=== PATIENT | female | born 1950 | race Caucasian/White ===

== ENCOUNTER 2016-09-08 17:19 | Emergency (ER) | payer MEDICARE, OTHER ==
[2016-09-08] MEDS ORDERED: MORPHINE 2 MG/ML SYRINGE IVP STA (19:22)
[2016-09-08] MEDS ORDERED: SODIUM CHLORIDE 0.9% 1,000 ML IV ONE ×2 (19:22→19:27)
[2016-09-08] MEDS ORDERED: MORPHINE 2 MG/ML SYRINGE ONE (19:27)
[2016-09-08] MEDS ORDERED: ONDANSETRON 4 MG/2 ML VIAL ONE (19:35)
[2016-09-08] MEDS ORDERED: ONDANSETRON 4 MG/2 ML VIAL IVP STA (19:36)
[2016-09-08] MEDS ORDERED: POTASSIUM BICARB 25 MEQ TABLET PO STA (20:12)
[2016-09-08] MEDS ORDERED: POTASSIUM BICARB 25 MEQ TABLET PO ONE (20:23)
[2016-09-08] MEDS ORDERED: CIPROFLOXACIN 250 MG TABLET PO STA (21:37)
[2016-09-08] MEDS ORDERED: metroNIDAZOLE 250 MG TABLET PO STA (21:37)
[2016-09-08] MEDS ORDERED: IOPAMIDOL-300 100 ML VIAL IVP ONE (21:42)
[2016-09-08] MEDS ORDERED: CIPROFLOXACIN 250 MG TABLET PO ONE (21:43)
[2016-09-08] MEDS ORDERED: metroNIDAZOLE 250 MG TABLET PO ONE (21:43)
== END 2016-09-08 22:00 | disposition home or self-care (01) ==
DX: A09 Infectious gastroenteritis and colitis, unspecified (principal); K92.1 Melena; K57.30 Diverticulosis of large intestine without perforation or abscess without bleeding; I10 Essential (primary) hypertension; E78.00 Pure hypercholesterolemia, unspecified; K21.9 Gastro-esophageal reflux disease without esophagitis; Z79.82 Long term (current) use of aspirin
CPT/HCPCS: 36415; 74177; 80053; 83690; 85025; 86850; 86900; 86901; 96374; 96375; 99283; 99284; A9270; Q9967

== ENCOUNTER 2016-11-08 09:24 | Outpatient (CLI) | payer MEDICARE, OTHER | END 2016-11-08 09:25 | disposition home or self-care (01) | DX: Z78.0 Asymptomatic menopausal state (principal) ==

== ENCOUNTER 2017-01-11 09:48 | Outpatient (CLI) | payer MEDICARE, OTHER | END 2017-01-11 09:49 | disposition home or self-care (01) | DX: I10 Essential (primary) hypertension (principal); Z79.899 Other long term (current) drug therapy ==

== ENCOUNTER 2017-02-28 09:02 | Outpatient (CLI) | payer MEDICARE, OTHER ==
[2017-02-28 09:26] LABS: CREATININE 0.8 mg/dL (0.4-1.0); POTASSIUM 3.4 mmol/L (3.5-5.0)
== END 2017-02-28 09:03 | disposition home or self-care (01) ==
LOC: LAB 09:02
PROVIDERS: ATTEND Physician Assistant Medical
DX: Z79.899 Other long term (current) drug therapy (principal)
CPT/HCPCS: 36415; 80048

== ENCOUNTER 2017-09-08 08:02 | Outpatient (CLI) | payer MEDICARE, OTHER ==
[2017-09-08 08:29] LABS: EOSINOPHILS # (AUTO) 0.1 10^3/uL (0.0-0.7); EOSINOPHILS % (AUTO) 3.4 %; HGB - HEMOGLOBIN 14.2 g/dL (12.0-16.0); LYMPHOCYTES # (AUTO) 1.7 10^3/uL (1.5-3.5); LYMPHOCYTES % (AUTO) 37.5 %; MEAN CORPUSCULAR HEMOGLOBIN 32.2 pg (27.0-31.0); MEAN CORPUSCULAR HGB CONC 34.8 g/dL (32.0-36.0); MEAN CORPUSCULAR VOLUME 92.7 fL (81.0-99.0); MEAN PLATELET VOLUME 10.1 fL (7.9-10.8); MONOCYTES # (AUTO) 0.4 10^3/uL (0.0-1.0); MONOCYTES % (AUTO) 8.8 %; NEUTROPHILS # (AUTO) 2.2 10^3/uL (1.5-6.6); NEUTROPHILS % (AUTO) 49.3 %; PLT - PLATELET COUNT 111 10^3/uL (130-450); RED BLOOD COUNT 4.39 10^6/uL (4.20-5.40); RED CELL DISTRIBUTION WIDTH 12.7 % (12.0-15.0); WHITE BLOOD COUNT 4.4 x10^3/uL (4.8-10.8)
[2017-09-08 08:36] LABS: HB2 TOTAL 15.2 g/dL; HEMOGLOBIN A1C 0.44 g/dL; HEMOGLOBIN A1C % 4.8 % (4.6-6.2)
[2017-09-08 09:08] LABS: ALBUMIN 4.4 g/dL (3.2-5.5); ALBUMIN/GLOBULIN RATIO 1.5 (1.0-2.2); ALKALINE PHOSPHATASE 41 IU/L (42-121); ALT ALANINE AMINOTRANSFERASE 24 IU/L (10-60); AST ASPARTATE AMINOTRANSFERASE 23 IU/L (10-42); BILIRUBIN,TOTAL 0.9 mg/dL (0.2-1.0); BUN - BLOOD UREA NITROGEN 18 mg/dL (6-20); CALCIUM 9.2 mg/dL (8.5-10.3); CARBON DIOXIDE - CO2 26 mmol/L (21-32); CHLORIDE 103 mmol/L (101-111); CHOL/HDL RATIO 2.8 (<4.4); CHOLESTEROL 147 mg/dL; CREATININE 0.8 mg/dL (0.4-1.0); GFR - MDRD 72 (>89); GLUCOSE 86 mg/dL (70-100); HDL CHOLESTEROL 52 mg/dL; LDL CHOLESTEROL,CALCULATED 56 mg/dL; LDL/HDL RATIO 1.1 (<4.4); SODIUM 138 mmol/L (135-145); TOTAL PROTEIN 7.3 g/dL (6.7-8.2); VLDL CHOLESTEROL 39 mg/dL
== END 2017-09-08 08:03 | disposition home or self-care (01) ==
LOC: LAB 08:02
PROVIDERS: ATTEND Nurse Practitioner Primary Care
DX: R73.01 Impaired fasting glucose (principal); Z79.899 Other long term (current) drug therapy; E88.81 Metabolic syndrome and other insulin resistance; I10 Essential (primary) hypertension; J30.2 Other seasonal allergic rhinitis; E78.2 Mixed hyperlipidemia
CPT/HCPCS: 36415; 80053; 80061; 83036; 84443; 85025

== ENCOUNTER 2017-09-10 08:57 | Outpatient (CLI) | payer MEDICARE, OTHER ==
--- NOTE | 2017-09-11 16:22 | MRI Report ---
EXAM: LEFT MIDFOOT MRI WITHOUT CONTRAST EXAM DATE: 09/10/2017 03:42 PM. CLINICAL HISTORY: Left forefoot pain for 6 months, worse near the second and third metatarsals. Prior surgery to the first and fourth toes. COMPARISON: None. TECHNIQUE: Multiplanar, multisequence T1-weighted and fluid-sensitive sequences of the midfoot withou t contrast. Other: None. FINDINGS: Bones: No fractures or subluxations. No marrow edema. No bone lesions. Articular Cartilage: Unremarkable. Ligaments: The visualized intertarsal, intermetatarsal, and tarsometatarsal ligaments are intact. Thi s includes the Lisfranc ligament. The visualized collateral ligaments are intact. Tendons: The flexor and extensor tendons are unremarkable. Musculature: No edema or fatty atrophy. Other: No effusions. The visualized portion of the tarsal tunnel is unremarkable. No intermetatarsal bursitis. The subcutaneous tissues are unremarkable. IMPRESSION: 1. Prior surgery to the first metatarsal. 2. Moderate osteoarthritis at the first metatarsophalangeal joint. [facility] Referring Provider Line: [phone] SITE ID: [id number]
== END 2017-09-10 08:58 | disposition home or self-care (01) ==
LOC: DI 08:57
PROVIDERS: ATTEND Podiatrist
DX: M19.072 Primary osteoarthritis, left ankle and foot (principal)

== ENCOUNTER 2018-01-01 13:00 | Outpatient (CLI) | payer MEDICARE, OTHER ==
[2018-01-01 11:24] LABS: BASOPHILS % (AUTO) 0.8 %; EOSINOPHILS # (AUTO) 0.2 10^3/uL (0.0-0.7); HGB - HEMOGLOBIN 13.7 g/dL (12.0-16.0); LYMPHOCYTES % (AUTO) 33.3 %; MEAN CORPUSCULAR HEMOGLOBIN 30.6 pg (27.0-31.0); MEAN CORPUSCULAR HGB CONC 33.9 g/dL (32.0-36.0); MEAN CORPUSCULAR VOLUME 90.2 fL (81.0-99.0); MEAN PLATELET VOLUME 10.7 fL (7.9-10.8); MONOCYTES # (AUTO) 0.4 10^3/uL (0.0-1.0); MONOCYTES % (AUTO) 6.7 %; NEUTROPHILS # (AUTO) 3.3 10^3/uL (1.5-6.6); NEUTROPHILS % (AUTO) 55.2 %; PLT - PLATELET COUNT 133 10^3/uL (130-450); RED BLOOD COUNT 4.46 10^6/uL (4.20-5.40); RED CELL DISTRIBUTION WIDTH 12.9 % (12.0-15.0)
[2018-01-01 11:34] LABS: ALBUMIN 4.1 g/dL (3.2-5.5); ALBUMIN/GLOBULIN RATIO 1.4 (1.0-2.2); BILIRUBIN,TOTAL 0.3 mg/dL (0.2-1.0); CALCIUM 8.8 mg/dL (8.5-10.3); CREATININE 0.8 mg/dL (0.4-1.0)
--- NOTE | 2018-01-01 13:20 | XRAY Preliminary Report ---
Exam: XR CHEST 2 VIEW X-RAY IMPRESSION: Normal 2-view chest radiography. [facility] SITE ID: [id number]
--- NOTE | 2018-01-01 13:20 | XRAY Report ---
EXAM: CHEST RADIOGRAPHY EXAM DATE: 01/01/2018 11:04 AM. CLINICAL HISTORY: FATIGUE / COUGH. COMPARISON: None. TECHNIQUE: 2 views. FINDINGS: Lungs/Pleura: No focal opacities evident. No pleural effusion. No pneumothorax. Normal volumes. Mediastinum: Heart and mediastinal contours are unremarkable. Other: None. IMPRESSION: Normal 2-view chest radiography. [facility] Referring Provider Line: [phone] SITE ID: [id number]
== END 2018-01-01 23:59 ==
LOC: DI 13:00
PROVIDERS: ATTEND Nurse Practitioner Primary Care
DX: R53.83 Other fatigue (principal); R05 Cough; E03.9 Hypothyroidism, unspecified
CPT/HCPCS: 36415; 71046; 80053; 84443; 85025

== ENCOUNTER 2018-09-14 08:09 | Outpatient (CLI) | payer MEDICARE, OTHER ==
[2018-09-14 08:45] LABS: BASOPHILS # (AUTO) 0.1 10^3/uL (0.0-0.1); BASOPHILS % (AUTO) 1.2 %; EOSINOPHILS # (AUTO) 0.2 10^3/uL (0.0-0.7); EOSINOPHILS % (AUTO) 4.1 %; HGB - HEMOGLOBIN 10.9 g/dL (12.0-16.0); LYMPHOCYTES % (AUTO) 39.4 %; MEAN CORPUSCULAR HEMOGLOBIN 24.7 pg (27.0-31.0); MEAN CORPUSCULAR HGB CONC 32.6 g/dL (32.0-36.0); MEAN CORPUSCULAR VOLUME 75.7 fL (81.0-99.0); MEAN PLATELET VOLUME 10.6 fL (7.9-10.8); MONOCYTES # (AUTO) 0.4 10^3/uL (0.0-1.0); MONOCYTES % (AUTO) 7.3 %; NEUTROPHILS # (AUTO) 2.4 10^3/uL (1.5-6.6); PLT - PLATELET COUNT 149 10^3/uL (130-450); RED BLOOD COUNT 4.43 10^6/uL (4.20-5.40); RED CELL DISTRIBUTION WIDTH 16.1 % (12.0-15.0); WHITE BLOOD COUNT 5.1 x10^3/uL (4.8-10.8)
[2018-09-14 08:52] LABS: ALBUMIN 4.1 g/dL (3.2-5.5); ALBUMIN/GLOBULIN RATIO 1.4 (1.0-2.2); ALKALINE PHOSPHATASE 46 IU/L (42-121); ALT ALANINE AMINOTRANSFERASE 20 IU/L (10-60); AST ASPARTATE AMINOTRANSFERASE 24 IU/L (10-42); BILIRUBIN,TOTAL 0.8 mg/dL (0.2-1.0); BUN - BLOOD UREA NITROGEN 22 mg/dL (6-20); CALCIUM 9.2 mg/dL (8.5-10.3); CARBON DIOXIDE - CO2 27 mmol/L (21-32); CHLORIDE 100 mmol/L (101-111); CHOL/HDL RATIO 2.8 (<4.4); CHOLESTEROL 110 mg/dL; CREATININE 0.8 mg/dL (0.4-1.0); GFR - MDRD 71 (>89); GLUCOSE 92 mg/dL (70-100); HDL CHOLESTEROL 40 mg/dL; LDL CHOLESTEROL,CALCULATED 37 mg/dL; LDL/HDL RATIO 0.9 (<4.4); SODIUM 136 mmol/L (135-145); TOTAL PROTEIN 7.1 g/dL (6.7-8.2); VLDL CHOLESTEROL 33 mg/dL
[2018-09-14 08:54] LABS: HB2 TOTAL 11.4 g/dL; HEMOGLOBIN A1C 0.37 g/dL; HEMOGLOBIN A1C % 5.1 % (4.6-6.2)
== END 2018-09-14 08:10 | disposition home or self-care (01) ==
LOC: LAB 08:09
PROVIDERS: ATTEND Nurse Practitioner Primary Care
DX: R73.01 Impaired fasting glucose (principal); E03.9 Hypothyroidism, unspecified; E87.6 Hypokalemia; R53.83 Other fatigue; Z79.899 Other long term (current) drug therapy; I10 Essential (primary) hypertension; E78.2 Mixed hyperlipidemia
CPT/HCPCS: 36415; 80053; 80061; 83036; 83721; 84443; 85025

== ENCOUNTER 2018-09-20 08:00 | Outpatient (CLI) | payer MEDICARE, OTHER ==
[2018-09-20 11:59] LABS: MEAN RETIC VALUE 97.4; RED BLOOD COUNT 4.67 10^6/uL (4.20-5.40)
[2018-09-20 12:28] LABS: FERRITIN 4.1 ng/mL (11.0-306.8)
== END 2018-09-20 23:59 | disposition home or self-care (01) ==
LOC: LAB.R 08:00
PROVIDERS: ATTEND Nurse Practitioner Primary Care
DX: D64.9 Anemia, unspecified (principal)
CPT/HCPCS: 82607; 82728; 83010; 85044; 86880

== ENCOUNTER 2018-09-28 08:00 | Outpatient (CLI) | payer MEDICARE, OTHER ==
[2018-09-28 15:31] LABS: BILIRUBIN,URINE NEGATIVE (NEGATIVE); GLUCOSE, URINE (UA) NEGATIVE (NEGATIVE); KETONES,URINE (UA) NEGATIVE (NEGATIVE); LEUKOCYTE ESTERASE, URINE NEGATIVE (NEGATIVE); NITRITE,URINE POSITIVE (NEGATIVE); OCCULT BLOOD,URINE NEGATIVE (NEGATIVE); PROTEIN,URINE NEGATIVE (NEGATIVE); UROBILINOGEN,URINE 0.2 (NORMAL) E.U./dL (NORMAL)
[2018-09-28 15:55] LABS: BACTERIA,URINE Many /HPF (None Seen); CLARITY,URINE CLEAR (CLEAR); RBC,URINE None Seen /HPF (0-5); SQUAMOUS EPITHELIAL CELL,UR RARE Squamous (<= Few)
== END 2018-09-28 23:59 | disposition home or self-care (01) ==
LOC: LAB.R 08:00
PROVIDERS: ATTEND Nurse Practitioner Primary Care
DX: R31.9 Hematuria, unspecified (principal); D50.9 Iron deficiency anemia, unspecified
CPT/HCPCS: 81001; 87077; 87086; 87181

== ENCOUNTER 2018-11-07 14:32 | Outpatient (CLI) | payer MEDICARE, OTHER | END 2018-11-07 14:33 | disposition home or self-care (01) | LOC: RT 14:32 | PROVIDERS: ATTEND Internal Medicine Gastroenterology | DX: I10 Essential (primary) hypertension (principal) | CPT/HCPCS: 93005 ==

== ENCOUNTER 2018-11-16 09:47 | Day surgery (SDC) | payer MEDICARE, OTHER ==
[2018-11-16] MEDS ORDERED: LACTATED RINGERS 1,000 ML IV ONE ×2 (10:23→12:09)
[2018-11-16] MEDS ORDERED: LIDO GARGLE 30 ML BOTTLE ONE (10:55)
[2018-11-16] MEDS ORDERED: fentaNYL 250 MCG/5 ML VIAL IVP ONE (11:43)
[2018-11-16] MEDS ORDERED: fentaNYL 100 MCG/2 ML VIAL IVP ONE (11:43)
[2018-11-16] MEDS ORDERED: MIDAZOLAM 2 MG/2 ML VIAL IVP ONE (11:43)
[2018-11-16] MEDS ORDERED: LIDO GARGLE 30 ML BOTTLE TOP ONE (11:46)
[2018-11-16 14:10] LABS: CREATININE 0.7 mg/dL (0.4-1.0)
[2018-11-16 14:29] VITALS: BP 132/85
== END 2018-11-16 09:48 | disposition home or self-care (01) ==
LOC: SDS 09:47
PROVIDERS: ATTEND Internal Medicine Gastroenterology
PROC: 0DB78ZX Excision of Stomach, Pylorus, Via Natural or Artificial Opening Endoscopic, Diagnostic (ICD-10-PCS; 2018-11-16)
PROC: 0DBH8ZX Excision of Cecum, Via Natural or Artificial Opening Endoscopic, Diagnostic (ICD-10-PCS; principal; 2018-11-16 11:00)
PROC: 0DB98ZX Excision of Duodenum, Via Natural or Artificial Opening Endoscopic, Diagnostic (ICD-10-PCS; 2018-11-16 11:00)
DX: C18.0 Malignant neoplasm of cecum (principal); K57.30 Diverticulosis of large intestine without perforation or abscess without bleeding; K31.9 Disease of stomach and duodenum, unspecified; E66.9 Obesity, unspecified; Z68.31 Body mass index [BMI] 31.0-31.9, adult; I10 Essential (primary) hypertension; K21.9 Gastro-esophageal reflux disease without esophagitis
CPT/HCPCS: 36415; 43239; 45380; 82378; 82565; 87081; A9270; J3010; J7120

== ENCOUNTER 2018-11-20 08:13 | Outpatient (CLI) | payer MEDICARE, OTHER ==
[2018-11-20] MEDS ORDERED: IOPAMIDOL-300 100 ML VIAL ONE (08:30)
[2018-11-20] MEDS ORDERED: IOVERSOL 320 50 ML VIAL ONE (08:30)
[2018-11-20] MEDS ORDERED: IOVERSOL 320 50 ML VIAL PO ONE (09:56)
[2018-11-20] MEDS ORDERED: IOPAMIDOL-300 100 ML VIAL IVP ONE (09:56)
--- NOTE | 2018-11-20 12:28 | CT Report ---
Reason: STAGING OF RECAL CANCER Procedure Date: 11/20/2018 Accession Number: [id number] / [id number] Procedure: CT - Abdomen/Pelvis W CPT Code: FULL RESULT: EXAM: CT ABDOMEN AND PELVIS EXAM DATE: 11/20/2018 09:55 AM. CLINICAL HISTORY: Staging of rectal cancer. COMPARISONS: Abdomen/pelvis 09/08/2016. TECHNIQUE: Routine helical CT imaging was performed through the abdomen and pelvis. IV contrast: Isovue-300 100 mL. Enteric contrast: Yes. Reconstructions: Coronal and sagittal. In accordance with CT protocol optimization, one or more of the following dose reduction techniques were utilized for this exam: automated exposure control, adjustment of mA and/or KV based on patient size, or use of iterative reconstructive technique. FINDINGS: Lung Bases: Unremarkable. Liver: Normal. No masses. Gallbladder/Bile Ducts: Gallbladder is surgically absent. There is no biliary ductal dilatation. Spleen: Normal. Pancreas: Normal. Adrenal Glands: Stable mild prominence of volume of the apices of the adrenal glands with possible 1 cm nodule on the left, unchanged since 2017. Kidneys: Normal. No masses or hydronephrosis. Peritoneal Cavity/Bowel: There is a decompressed/ahaustral appearance to a 30-35 cm long segment of colon from the hepatic flexure through the distal transverse colon with possible associated wall thickening and nonspecific stranding in the pericolonic fat. The same appearance was noted involving the distal transverse colon through the descending colon on the comparison exam of 2016. Otherwise, no colonic/rectal masses appreciated by CT. There is diverticulosis without CT evidence of diverticulitis. No small-bowel abnormality demonstrated. No free air or free fluid. No adenopathy appreciated. Pelvic Organs: Normal. The bladder and visualized pelvic organs are within normal limits. Vasculature: No aneurysms or other significant abnormality. Bones: 17 degrees of convex right scoliosis apex L3 secondary to degenerative disk changes. Other: None. IMPRESSION: 1. Abnormal morphology to a 30 cm long segment of colon as described, suggesting nonspecific colitis. Note: Identical appearance was noted on the comparison exam of 2017 involving different segments of colon. 2. No appreciable rectal or colonic masses by CT. No adenopathy or free fluid. No evidence of intra-abdominal metastases. [facility]
== END 2018-11-20 08:14 | disposition home or self-care (01) ==
LOC: DI 08:13
PROVIDERS: ATTEND Internal Medicine Gastroenterology
DX: C18.0 Malignant neoplasm of cecum (principal)
CPT/HCPCS: 74177; Q9967

== ENCOUNTER 2018-11-27 07:26 | Inpatient (IN) | payer MEDICARE, OTHER ==
[~2018-11-27 07:26] MED LIST: ONDANSETRON 4 MG/2 ML VIAL ONE; ceFAZolin 2 GM/50 ML 2 GM/50 ML BAG IV ONE; metroNIDAZOLE 500 MG/100 ML 500 MG/100 ML BAG ONE
[2018-11-27] MEDS ORDERED: LACTATED RINGERS 1,000 ML IV ONE (07:40)
[2018-11-27] MEDS ORDERED: FAMOTIDINE 20 MG/2 ML VIAL IVP ONE (08:00)
[2018-11-27] MEDS ORDERED: BUPIVACAINE 0.5%-EPI 1:200000 PF 30 ML VIAL ONE (08:05)
[2018-11-27] MEDS ORDERED: SCOPOLAMINE PATCH TOP ONE (08:19)
--- NOTE | 2018-11-27 08:33 | ANESTHESIA ---
Pre-Anesthesia VS, & Labs - Diagnosis cecal cancer - Procedure laparoscopic assisted right colectomy Vital Signs: Temp Pulse Resp BP Pulse Ox 36.5 C 68 18 121/75 98 11/27/18 07:45 11/27/18 07:45 11/27/18 07:45 11/27/18 07:45 11/27/18 07:45 Height 5 ft 7 in Weight (kg) 90.4 kg - NPO >8 hours - Is Patient ?: No Home Medications and Allergies Aspirin [Aspir-Low] 81 mg PO DAILY 09/08/16 Atorvastatin [Lipitor] 20 mg PO DAILY 09/08/16 buPROPion [Wellbutrin Xl] 150 mg PO DAILY PRN 09/08/16 Chlorthalidone 25 mg PO DAILY 11/15/18 Metoprolol Succinate 100 mg PO DAILY 11/15/18 Estrogens, Conjugated [Premarin] 0.625 mg PO DAILY 11/16/18 Allergies/Adverse Reactions: Allergies Allergy/AdvReac Type Severity Reaction Status Date / Time Penicillins Allergy Anaphylaxis Verified 09/08/16 17:26 Sulfa (Sulfonamide Allergy Anaphylaxis Verified 09/08/16 17:26 Antibiotics) Anes History & Medical History - Anesthetic History Anesthesia Complications: reports: Other-see comment (post op delirium) Family history of Anesthesia Complications: Denies Family history of Malignant Hyperthermia: Denies - Medical History Cardiovascular: reports: Hypertension, High cholesterol, Murmur Pulmonary: reports: None, Shortness of breath (secondary to anemia) Gastrointestinal: reports: GERD, Other (nausea) Urinary: reports: Incontinence (in past), Kidney stones Neuro: reports: Peripheral neuropathy, Motion sickness Musculoskeletal: reports: Osteoarthritis, Gout Endocrine/Autoimmune: reports: None Blood Disorders: reports: Anemia Skin: reports: None Smoking Status: Never smoker Psychosocial: reports: Depression, Alcohol (occasional wine) - Surgical History General: Cholecystectomy, Appendectomy, Colonoscopy Eyes Ears Nose Throat (EENT): Tonsil/Adenoidectomy Urologic: Bladder surgery Gynecologic: Hysterectomy Exam General: Alert Dental: WNL Neck Mobility: Normal Mallampati classification: II Thyromental Distance: greater than 6 cm Respiratory: Lungs clear Cardiovascular: Regular rate, Normal S1, Normal S2 Mental/Cognitive Status: Alert/Oriented X3 Cognitive Status: Within normal limits Plan Anesthesia Type: General, Transverse Abdominis Plane (TAP) Block Consent for Procedure(s) Verified and Reviewed: Yes Code Status: Attempt Resuscitation ASA classification: 2-Mild systemic disease Is this case an emergency?: No
[2018-11-27] MEDS ORDERED: GABAPENTIN 400 MG CAPSULE ONE (08:36)
[2018-11-27] MEDS ORDERED: CELECOXIB 100 MG CAPSULE PO ONE (08:36)
[2018-11-27] MEDS ORDERED: ACETAMINOPHEN 1,000 MG/100 ML 100 ML IV ONE (08:41)
[2018-11-27 09:22] LABS: BASOPHILS % (AUTO) 0.3 %; EOSINOPHILS # (AUTO) 0.1 10^3/uL (0.0-0.7); EOSINOPHILS % (AUTO) 2.2 %; HGB - HEMOGLOBIN 9.2 g/dL (12.0-16.0); LYMPHOCYTES # (AUTO) 0.8 10^3/uL (1.5-3.5); LYMPHOCYTES % (AUTO) 16.1 %; MEAN CORPUSCULAR HEMOGLOBIN 22.8 pg (27.0-31.0); MEAN CORPUSCULAR HGB CONC 31.3 g/dL (32.0-36.0); MEAN CORPUSCULAR VOLUME 72.8 fL (81.0-99.0); MONOCYTES # (AUTO) 0.2 10^3/uL (0.0-1.0); MONOCYTES % (AUTO) 3.6 %; NEUTROPHILS # (AUTO) 3.8 10^3/uL (1.5-6.6); NEUTROPHILS % (AUTO) 77.8 %; PLT - PLATELET COUNT 122 10^3/uL (130-450); RED BLOOD COUNT 4.05 10^6/uL (4.20-5.40); RED CELL DISTRIBUTION WIDTH 16.4 % (12.0-15.0); WHITE BLOOD COUNT 4.9 x10^3/uL (4.8-10.8)
[2018-11-27] MEDS ORDERED: DEXMEDETOMIDINE 400 MCG/100 ML 100 ML IV ONE (09:29)
[2018-11-27 09:31] LABS: CALCIUM 8.7 mg/dL (8.5-10.3); CREATININE 0.9 mg/dL (0.4-1.0)
[2018-11-27] MEDS ORDERED: BUPIVACAINE 0.5%-EPI 1:200000 PF 30 ML VIAL SUBQ ONE (10:30)
[2018-11-27] MEDS ORDERED: ROCURONIUM 50 MG/5 ML VIAL IVP ONE (10:59)
[2018-11-27] MEDS ORDERED: PHENYLEPHRINE 50 MG/5 ML VIAL IV ONE (10:59)
[2018-11-27] MEDS ORDERED: PROPOFOL 200 MG/20 ML VIAL IVP ONE (10:59)
[2018-11-27] MEDS ORDERED: DEXAMETHASONE 4 MG/ML VIAL IVP ONE (10:59)
[2018-11-27] MEDS ORDERED: ROPIVACAINE 0.5% PF 20 ML AMPULE EP ONE (10:59)
[2018-11-27] MEDS ORDERED: fentaNYL 250 MCG/5 ML VIAL IVP ONE (10:59)
[2018-11-27] MEDS ORDERED: LIDOCAINE-MPF 2% 5 ML VIAL IM ONE (10:59)
[2018-11-27] MEDS ORDERED: SODIUM CHLORIDE 0.9% 100 ML BAG IV ONE (10:59)
[2018-11-27] MEDS ORDERED: MIDAZOLAM 2 MG/2 ML VIAL IVP ONE (10:59)
[2018-11-27] MEDS ORDERED: ePHEDrine 50 MG/ML VIAL IVP ONE (10:59)
[2018-11-27] MEDS ORDERED: ROPIVACAINE 0.5% PF 20 ML AMPULE ONE (11:59)
[2018-11-27] MEDS ORDERED: SUGAMMADEX 200 MG/2 ML VIAL IVP ONE (11:59)
--- NOTE | 2018-11-27 12:14 | OPERATIVE REPORT ---
Operative Report - General Admit Date: 11/27/18 Procedure Date: 11/27/18 Planned Procedure: Laparoscopic assisted right colectomy Pre-Op Diagnosis: adenocarcinoma of the ascending colon Procedure Performed: Laparoscopic assisted right colectomy Post Op Diagnosis: adenocarcinoma of the ascending colon - Procedure Note Primary Surgeon: Bang Clifford MD [facility] Anesthesia Provider: Joann Ryan CRNA Anesthesia Technique: General ET tube Pathology: right colon and mesentery IV Fluids (mL): 500 Estimated Blood Loss (mL): 20 Urine Output (mL): 200 Indications: cecal tumor noted at colonoscopy during evaluation of iron defciency anemia. Findings: No evidence of metastatic spread outside the colon to lymph nodes, peritoneum, or liver Complications: None
[2018-11-27] MEDS ORDERED: ONDANSETRON 4 MG/2 ML VIAL IVP PRN (12:16)
[2018-11-27] MEDS ORDERED: SODIUM CHLORIDE FLUSH 0.9% 10 ML SYRINGE IVP PRN (12:16)
[2018-11-27] MEDS: POTASSIUM CHLOR 20 MEQ/100 ML 20 MEQ/100 ML BAG IV SCH ×2 (13:52→14:48)
[2018-11-27] MEDS: ACETAMINOPHEN 1,000 MG/100 ML 100 ML IV SCH ×2 (13:52→18:56)
--- NOTE | 2018-11-27 14:34 | OPERATIVE REPORT ---
DATE OF SERVICE: 11/27/2018 Physician: Bang Clifford MD PREOPERATIVE DIAGNOSIS: Adenocarcinoma of the ascending colon. POSTOPERATIVE DIAGNOSIS: Adenocarcinoma of the ascending colon. PROCEDURE: Laparoscopic-assisted right hemicolectomy. ANESTHESIA: General endotracheal by Leobardo Ryan CRNA. SURGEON: Bang Clifford MD ESTIMATED BLOOD LOSS: 20 mL. FLUIDS REPLACED: 500 mL crystalloid solution. COMPLICATIONS: None. DRAINS: None. URINE OUTPUT: 200 mL. FINDINGS: A small tumor was palpable in the cecum near the ileocecal valve without gross evidence of transmural invasion mesenteric lymphadenopathy, peritoneal seeding, or liver metastasis. Adhesions were present in the right upper and right lower quadrants from prior surgery. Gallbladder, appendix, uterus were surgically absent. The visualized portions of the remainder of the small and large rani l, the liver, stomach were within normal limits. INDICATIONS: Patient is a 68-year-old woman who was noted on colonoscopy for evaluation of iron defi ciency anemia to have an ulcerated mass lesion in the cecum, biopsies which confirmed adenocarcinoma. Staging evaluation, which included lab work toward testing and CT scanning, was negative for metast atic disease. She is advised to undergo a laparoscopic-assisted right hemicolectomy for definitive s urgical therapy. TECHNIQUE: After informed consent and mechanical and antibiotic bowel preparation, patient was taken to the operating room where she was placed under general endotracheal anesthesia. Preoperative prep aration also included application of sequential calf compression boots and administration of 2 grams of cefazolin and 500 mg of metronidazole intravenously within an hour of the incision. Her abdomen w as prepped with ChloraPrep and draped in the usual sterile fashion. Approximately 6 cm incision was made in the periumbilical midline and carried down through the layers of the abdominal wall until the peritoneum was identified and entered sharply. A GelPort was inserted and pneumoperitoneum achieved with carbon dioxide. Two additional 5 mm ports were placed in the subxiphoid midline and left upper quadrant. Then using a hand-assisted laparoscopic technique, the abdomen was explored with the find ings noted above. Adhesions were lysed with the LigaSure device. The white line of Toldt was identi fied and dissected using the LigaSure and blunt dissection. The right colon was mobilized completely and reflected medially to the midline. The hepatic flexure was taken down with the LigaSure. The a ttachments of the lower right colon and terminal ileum to the retroperitoneum were lysed with the Lig aSure, care being taken to identify and preserve the ureter. The right colon was mobilized to the le demetrice of the midline at which point the right colon was able to be exteriorized through the GelPort sle kelley and an extracorporeal resection and anastomosis were then performed. The points of bowel divisio n were chosen in the terminal ileum approximately 6 cm proximal to the ileocecal valve and at the rig ht transverse colon where the bowel was mobilized circumferentially and ligated and divided with a Fitmoodien 75 mm linear cutting stapling device with a GI load. The right colon mesentery was then ligated and divided near its base with the LigaSure device and wit h 2-0 Vicryl ties for the ileocolic and right colic vessels. The right colon and mesentery was then sent for pathologic evaluation. A functional end-to-end anastomosis was then performed using the sta pling technique aligning the terminal ileum with the transverse colon and creating a common channel u sing the stapling device with one arm being passed through the terminal ileum and the other through t he wall of the colon. After hemostasis was assured, the resulting common defect was closed with a TA 60 stapler. The resulting anastomosis was seen to be patent, watertight, and viable. Omentum was w rapped around the anastomosis for additional security and this was held in place with 3-0 silk suture s. After hemostasis had been assured, the anastomosis was returned to the abdominal cavity. Pneumop eritoneum was reestablished. The abdominal cavity was then explored once again, and after hemostasis was assured the abdominal cavity was irrigated with 1 liter of saline solution, following which the instruments and cannulas were removed under direct vision. Pneumoperitoneum was allowed to escape an d the incisions were closed using continuous 0 PDS to reapproximate the midline fascia at the umbilic us, followed by 3-0 Vicryl for subcutaneous tissues and then 4-0 Monocryl for all of the incisions, i ncluding the 2 port sites. Dermabond was applied and the procedure was then terminated. Anesthesia then proceeded to perform TAP blocks to assist in postoperative analgesia. Anesthesia then terminate d, patient transferred to the recovery room in satisfactory condition. Sponge and needle counts were correct x2, and no drains were used. cc: DREW Hall TD: 11/27/2018 12:51
[2018-11-27] MEDS: POTASSIUM CHLORIDE INJ 40 MEQ in DEXTROSE 5%-0.45% NACL 980 ML IV SCH (14:50)
[2018-11-27] MEDS: MORPHINE 2 MG/ML SYRINGE IVP PRN ×3 (14:59→21:41)
--- NOTE | 2018-11-27 15:34 | ANESTHESIA PROCEDURE NOTE ---
Diagnosis: Cecal cancer Procedure: Bilateral Tranverse abdominis plane block Consent for Procedure(s) Verified and Reviewed: Yes Height and Weight: Height 5 ft 7 in Weight (kg) 90.4 kg Vital Signs: Temp Pulse Resp BP Pulse Ox 36.5 C 54 L 16 107/54 L 96 11/27/18 14:45 11/27/18 14:45 11/27/18 14:45 11/27/18 14:45 11/27/18 14:45 Allergies Penicillins Allergy (Verified 09/08/16 17:26) Anaphylaxis Sulfa (Sulfonamide Antibiotics) Allergy (Verified 09/08/16 17:26) Anaphylaxis Requesting Provider: Alan Clifford Location: Bilateral TAP blocks ASA classification: 2-Mild systemic disease Is this case an emergency?: No Anes. Monitoring and Equipment: Non-invasive BP, Pulse oximetery Procedure Notes: At end of surgical procedure, Bilateral TAP blocks were placed with patient under general anesthesia. Both sides of the lateral abdomen were prepped with chloroprep. Ultrasound was used to visualize the external oblique muscle, the internal oblique muscle and the transverse abdominis muscle. A 4 inch 22G stimiplex blunt needle was advanced to the facial plane between the internal oblique and transverse abdominis muscles. A total of 30ml of 0.25% ropivicaine was injected with adequate spread noted. The procedure was repeated on the opposite side for bilateral coverage. Patient tolerated well and was taken to the recovery room in good condition. Full evaluation was pending.
[2018-11-27] MEDS: SODIUM CHLORIDE FLUSH 0.9% 10 ML SYRINGE IVP SCH (16:49)
[2018-11-27] MEDS: ENOXAPARIN 40 MG/0.4 ML SYRINGE SUBQ SCH (19:36)
[2018-11-27] MEDS: ATORVASTATIN 10 MG TABLET PO SCH (20:45)
[2018-11-27] MEDS: FAMOTIDINE 20 MG TABLET PO SCH (20:45)
[2018-11-28] MEDS: ACETAMINOPHEN 1,000 MG/100 ML 100 ML IV SCH ×4 (00:59→20:08)
[2018-11-28] MEDS: POTASSIUM CHLORIDE INJ 40 MEQ in DEXTROSE 5%-0.45% NACL 980 ML IV SCH (03:31)
[2018-11-28] MEDS: MORPHINE 2 MG/ML SYRINGE IVP PRN ×4 (04:37→22:13)
[2018-11-28] MEDS: SODIUM CHLORIDE FLUSH 0.9% 10 ML SYRINGE IVP SCH ×3 (04:37→16:52)
[2018-11-28 05:05] LABS: BASOPHILS % (AUTO) 0.1 %; HGB - HEMOGLOBIN 8.3 g/dL (12.0-16.0); LYMPHOCYTES # (AUTO) 0.5 10^3/uL (1.5-3.5); LYMPHOCYTES % (AUTO) 7.1 %; MEAN CORPUSCULAR HEMOGLOBIN 22.5 pg (27.0-31.0); MEAN CORPUSCULAR HGB CONC 30.9 g/dL (32.0-36.0); MEAN PLATELET VOLUME 10.6 fL (7.9-10.8); MONOCYTES # (AUTO) 0.2 10^3/uL (0.0-1.0); MONOCYTES % (AUTO) 3.5 %; NEUTROPHILS # (AUTO) 6.4 10^3/uL (1.5-6.6); NEUTROPHILS % (AUTO) 89.3 %; PLT - PLATELET COUNT 109 10^3/uL (130-450); RED BLOOD COUNT 3.69 10^6/uL (4.20-5.40); RED CELL DISTRIBUTION WIDTH 16.4 % (12.0-15.0); WHITE BLOOD COUNT 7.1 x10^3/uL (4.8-10.8)
[2018-11-28 05:15] LABS: ALBUMIN 3.3 g/dL (3.2-5.5); ALBUMIN/GLOBULIN RATIO 1.3 (1.0-2.2); BILIRUBIN,TOTAL 0.8 mg/dL (0.2-1.0); CALCIUM 7.9 mg/dL (8.5-10.3); CREATININE 0.7 mg/dL (0.4-1.0); TOTAL PROTEIN 5.9 g/dL (6.7-8.2)
[2018-11-28] MEDS: POTASSIUM CHLORIDE 20 MEQ TABLET PO SCH ×3 (08:13→20:08)
[2018-11-28] MEDS: FAMOTIDINE 20 MG TABLET PO SCH ×2 (08:13→20:08)
[2018-11-28] MEDS: METOPROLOL SUCCINATE 50 MG TABLET PO SCH (08:14)
[2018-11-28] MEDS ORDERED: buPROPion XL 150 MG TABLET PO SCH (09:00)
[2018-11-28] MEDS: oxyCODONE 5 MG TABLET PO PRN (09:37)
[2018-11-28] MEDS: ENOXAPARIN 40 MG/0.4 ML SYRINGE SUBQ SCH (10:21)
[2018-11-28] MEDS: ATORVASTATIN 10 MG TABLET PO SCH (20:08)
[2018-11-29] MEDS: oxyCODONE 5 MG TABLET PO PRN (00:57)
[2018-11-29] MEDS: ACETAMINOPHEN 1,000 MG/100 ML 100 ML IV SCH ×2 (01:48→06:50)
[2018-11-29] MEDS: SODIUM CHLORIDE FLUSH 0.9% 10 ML SYRINGE IVP SCH ×2 (01:56→08:02)
[2018-11-29 04:59] LABS: BASOPHILS % (AUTO) 0.4 %; EOSINOPHILS % (AUTO) 0.3 %; HGB - HEMOGLOBIN 7.2 g/dL (12.0-16.0); LYMPHOCYTES # (AUTO) 1.4 10^3/uL (1.5-3.5); LYMPHOCYTES % (AUTO) 17.9 %; MEAN CORPUSCULAR HEMOGLOBIN 22.6 pg (27.0-31.0); MEAN CORPUSCULAR VOLUME 72.9 fL (81.0-99.0); MONOCYTES # (AUTO) 0.4 10^3/uL (0.0-1.0); MONOCYTES % (AUTO) 5.2 %; NEUTROPHILS % (AUTO) 76.2 %; PLT - PLATELET COUNT 96 10^3/uL (130-450); RED CELL DISTRIBUTION WIDTH 16.3 % (12.0-15.0); WHITE BLOOD COUNT 7.9 x10^3/uL (4.8-10.8)
[2018-11-29 05:07] LABS: CALCIUM 8.2 mg/dL (8.5-10.3); CREATININE 0.8 mg/dL (0.4-1.0)
[2018-11-29] MEDS: POTASSIUM CHLORIDE 20 MEQ TABLET PO SCH (06:57)
--- NOTE | 2018-11-29 07:08 | PROVIDER PROGRESS NOTE ---
Subjective - General Admit Date: 11/27/18 Procedure Date: 11/27/18 Post Op Days: 2 Procedure Performed: lap right colectomy - Review of Systems Wound/Incisions: positive: Healing well, No drainage General: positive: No symptoms Pulmonary: positive: No symptoms Cardiovascular: positive: No symptoms Gastrointestinal: positive: Abdominal pain (expected postop incisional pain) Genitourinary: positive: No symptoms - Other Other Information/Narrative: feels well; no N/V; passing flatus and stool. tolerating full liquid diet, ambulating, voiding well. Objective - Patient Data Reviewed Vital Signs: Yes Vital Signs: Vital Signs x48h Temp Pulse Resp BP Pulse Ox 11/29/18 04:55 36.5 C 82 16 113/61 97 11/29/18 00:03 36.6 C 81 18 109/65 95 Weight: Weight 11/27/18 11/28/18 11/29/18 23:59 23:59 23:59 Weight (kg) 90.4 kg Intake & Output: Intake and Output Totals x24h 11/27/18 11/28/18 11/29/18 23:59 23:59 23:59 Intake Total 1440 4038.25 100 Output Total 495 675 800 Balance 945 3363.25 -700 - Lab Results Lab Results: 11/29/18 04:50 11/29/18 04:50 Other Lab Results: Lab Results x24hrs 11/29/18 11/29/18 11/28/18 Range/Units 04:50 04:50 11:55 WBC 7.9 (4.8-10.8) x10^3/uL RBC 3.20 L (4.20-5.40) 10^6/uL Hgb 7.2 L (12.0-16.0) g/dL Hct 23.3 L (37.0-47.0) % MCV 72.9 L (81.0-99.0) fL MCH 22.6 L (27.0-31.0) pg MCHC 31.0 L (32.0-36.0) g/dL RDW 16.3 H (12.0-15.0) % Plt Count 96 L (130-450) 10^3/uL MPV 10.0 (7.9-10.8) fL Neut # (Auto) 6.0 (1.5-6.6) 10^3/uL Lymph # (Auto) 1.4 L (1.5-3.5) 10^3/uL [place] # (Auto) 0.4 (0.0-1.0) 10^3/uL Eos # (Auto) 0.0 (0.0-0.7) 10^3/uL Baso # (Auto) 0.0 (0.0-0.1) 10^3/uL Absolute Nucleated RBC 0.00 x10^3/uL Nucleated RBC % 0.0 /100WBC Sodium 136 (135-145) mmol/L Potassium 3.9 (3.5-5.0) mmol/L Chloride 102 (101-111) mmol/L Carbon Dioxide 25 (21-32) mmol/L Anion Gap 9.0 (6-13) BUN 13 (6-20) mg/dL Creatinine 0.8 (0.4-1.0) mg/dL Estimated GFR (MDRD) 71 L (>89) Glucose 95 (70-100) mg/dL POC Whole Bld Glucose 120 H (70 - 100) mg/dL Calcium 8.2 L (8.5-10.3) mg/dL - Current Medications Current Medications: Current Medications Generic Name Dose Route Start Last Admin Trade Name Ijeoma PRN Reason Stop Dose Admin Atorvastatin Calcium 10 mg 11/27/18 21:00 11/28/18 20:08 Lipitor PO 10 mg QPM SEAN Administration Bupropion HCl 150 mg 11/28/18 09:00 11/28/18 08:13 Wellbutrin Xl PO 150 mg DAILY SEAN Administration Enoxaparin Sodium 40 mg 11/27/18 20:00 11/28/18 10:21 Lovenox SUBQ Not Given DAILY SEAN Famotidine 20 mg 11/27/18 21:00 11/28/18 20:08 Pepcid PO 20 mg BID SEAN Administration Acetaminophen 100 mls @ 400 mls/hr 11/27/18 13:00 11/29/18 06:50 Ofirmev IV 400 mls/hr Q6H SEAN Administration Metoprolol Succinate 100 mg 11/28/18 09:00 11/28/18 08:14 Toprol Xl PO Not Given DAILY SEAN Morphine Sulfate 2 mg 11/27/18 12:16 11/28/18 22:13 Morphine IVP 2 mg Q2H PRN Administration PAIN Oxycodone HCl 5 mg 11/27/18 12:16 11/29/18 00:57 Roxicodone PO 5 mg Q4HR PRN Administration PAIN Potassium Chloride 20 meq 11/28/18 08:00 11/29/18 06:57 K-Dur PO 20 meq TID SEAN Administration Sodium Chloride 10 ml 11/27/18 17:00 11/29/18 01:56 Normal Saline Flush 0.9% IVP 10 ml 0100,0900,1700 SEAN Administration Sodium Chloride 10 ml 11/27/18 12:16 11/28/18 18:07 Normal Saline Flush 0.9% IVP 10 ml PRN PRN Administration NEEDED PER PROVIDER ORDERS - Physical Exam Wound/Incisions: positive: Healing well, No drainage General Appearance: positive: No acute distress, Alert Eyes Bilateral: positive: Normal inspection ENT: positive: ENT inspection nml, No signs of dehydration Neck: positive: Nml inspection Respiratory: positive: Chest non-tender, No respiratory distress, Breath sounds nml Abdomen: positive: Non-tender, No distention, Other (incisions healing well) Skin: positive: Color nml, No rash, Warm, Dry. negative: Cyanosis Extremities: positive: Non-tender, Nml appearance, No pedal edema. negative: Calf tenderness Neurologic/Psychiatric: positive: Oriented x3 ABX Reporting Has patient been on IV antibiotics over the past 48 hours?: No Impression/Plan - Problem List Problem List: 1. Colon cancer; PO Day 1 s/p lap right colectomy; doing well. Plan: home today; usual precautions; RTO 1 week 2. Anemia, iron deficiency, due to problem # 1 above; will discharge with iron supplements and multivitamin 3. hypokalemia due to diuretic use; now resolved; given nl b/p off diuretic at present will send home off her diuretic with plans to f/u with PCP for further management of her htn as appropriate.
--- NOTE | 2018-11-29 07:14 | Discharge Plan ---
Discharge Plan Disposition: Home, Self Care Condition: Good Prescriptions: Acetaminophen [Tylenol] 650 mg PO Q6H PRN #30 tablet PRN Reason: Pain Or Fever > 38c (100.4f) Ferrous Gluconate [Iron] 240 mg PO DAILY #30 tablet Multivitamin [Theragran] 1 tab PO DAILYWM #30 tablet oxyCODONE [Roxicodone] 5 mg PO Q6H PRN #20 tablet PRN Reason: Pain Diet: Regular (avoid carbonated beverages, raw vegetables and nuts) Activity Restrictions: ambulate daily; no lifting more than 10 lbs for 2 weeks Shower Restrictions: No (no baths for one week) Driving Restrictions: Yes (no driving while using narcotic analgesics) Weight Bearing: Full Weight Additional Instructions or Follow Up instructions: F/u with Dr. Clifford in 1 week; f/u with primary care provider in 1 week. No Smoking: If you smoke, Please STOP! Call for help. Follow-up with: Sarath Senior MD [Primary Care Provider] -
--- NOTE | 2018-11-29 07:19 | DISCHARGE SUMMARY ---
"Discharge Summary Admit Date: 11/27/18 Discharge Date: 11/29/18 Discharging Provider: Dr. Bang Clifford Primary Care Provider: Dr. Senior Code Status: Attempt Resuscitation Condition at Discharge: Good Discharge Disposition: 01 Home, Self Care Discharge Facility Name: [facility] - DIAGNOSES Admission Diagnoses: Colon cancer Discharge Diagnoses with Status of Each Condition: 11/27/18: Lap assisted right hemicolectomy - HPI History of Present Illness: See previously dictated surgical H & P - CONSULTS | PROCEDURES Consultations: None Procedures: 11/27/18: Lap assisted right hemicolectomy - HOSPITAL COURSE Hospital Course: Pt's hospital course was uncomplicated. She was managed using an ERAS protocol and by the 2nd postop day she was afebrile, with stable vs, ambulatory, tolerating a full liquid diet well, voiding, moving her bowels, with pain well controlled. Her preop hypokalemia thought due to chronic diuretic use was treated with potassium replacement. Her b/p remained nl off her diuretic and she will be discharged off this medication. Her preop anemia worsened postop (H/H 23/7.3) thought due to equilibration and hydration. She will be sent home on multivitamin and iron supplementation. - ALLERGIES Allergies/Adverse Reactions: Allergies Allergy/AdvReac Type Severity Reaction Status Date / Time Penicillins Allergy Anaphylaxis Verified 09/08/16 17:26 Sulfa (Sulfonamide Allergy Anaphylaxis Verified 09/08/16 17:26 Antibiotics) - MEDICATIONS Home Medications: Ambulatory Orders Medication Instructions Recorded Confirmed Atorvastatin [Lipitor] 20 mg PO DAILY 09/08/16 11/22/18 buPROPion [Wellbutrin Xl] 150 mg PO DAILY PRN 09/08/16 11/22/18 Metoprolol Succinate 100 mg PO DAILY 11/15/18 11/22/18 Acetaminophen [Tylenol] 650 mg PO Q6H PRN #30 tablet 11/29/18 Ferrous Gluconate [Iron] 240 mg PO DAILY #30 tablet 11/29/18 Multivitamin [Theragran] 1 tab PO DAILYWM #30 tablet 11/29/18 oxyCODONE [Roxicodone] 5 mg PO Q6H PRN #20 tablet 11/29/18 - PHYSICAL EXAM AT DISCHARGE General Appearance: positive: No acute distress, Alert Eyes Bilateral: positive: Normal inspection ENT: positive: ENT inspection nml Neck: positive: Nml inspection Respiratory: positive: Chest non-tender, No respiratory distress, Breath sounds nml Abdomen: positive: No distention, Tenderness (expected incisional tenderness) Extremities: positive: Non-tender, Nml appearance, No pedal edema. negative: Calf tenderness Neurologic/Psychiatric: positive: Oriented x3 - LABS Result Diagrams: 11/29/18 04:50 11/29/18 04:50 - FOLLOW UP Follow Up: Dr. Clifford in 1 week; PCP in 1 week."
[2018-11-29] MEDS ORDERED: buPROPion XL 150 MG TABLET PO PRN (07:23)
[2018-11-29] MEDS ORDERED: oxyCODONE 5 MG TABLET PO PRN (07:24)
[2018-11-29] MEDS ORDERED: ACETAMINOPHEN 325 MG TABLET PO PRN (07:24)
[2018-11-29] MEDS: ENOXAPARIN 40 MG/0.4 ML SYRINGE SUBQ SCH (07:42)
[2018-11-29 07:49] VITALS: BP 113/65
[2018-11-29] MEDS: METOPROLOL SUCCINATE 50 MG TABLET PO SCH (07:51)
[2018-11-29] MEDS ORDERED: FERROUS GLUCONATE 324 MG TABLET PO SCH (08:00)
[2018-11-29] MEDS ORDERED: MULTIVITAMIN TABLET PO SCH (08:00)
[2018-11-29] MEDS: FAMOTIDINE 20 MG TABLET PO SCH (08:02)
[2018-11-29] MEDS ORDERED: METOPROLOL SUCCINATE 25 MG TABLET PO SCH (09:00)
[2018-11-29] MEDS ORDERED: ASPIRIN EC 81 MG TABLET PO SCH (09:00)
[2018-11-29] MEDS ORDERED: ATORVASTATIN 10 MG TABLET PO SCH (21:00)
--- NOTE | 2018-12-04 09:02 | PROCEDURE REPORT ---
Hospitalist Procedure Note - Procedure Note Procedure Note: I certify that I expect this patient to be discharged or transferred within 96 hours of admission.
== END 2018-11-29 09:12 | disposition home or self-care (01) | DRG 331 ==
LOC: MS3 07:26 → EDSTATUS 08:45
PROVIDERS: ADMIT Internal Medicine Gastroenterology; ATTEND Internal Medicine Gastroenterology
PROC: 0DTF4ZZ Resection of Right Large Intestine, Percutaneous Endoscopic Approach (ICD-10-PCS; principal; 2018-11-27 08:45)
DX: C18.0 Malignant neoplasm of cecum (principal); D50.9 Iron deficiency anemia, unspecified; E87.6 Hypokalemia; I10 Essential (primary) hypertension; E78.5 Hyperlipidemia, unspecified; K21.9 Gastro-esophageal reflux disease without esophagitis; F32.9 Major depressive disorder, single episode, unspecified; E66.9 Obesity, unspecified; G62.9 Polyneuropathy, unspecified; M47.819 Spondylosis without myelopathy or radiculopathy, site unspecified; J32.9 Chronic sinusitis, unspecified; R05 Cough; R53.83 Other fatigue; Z68.31 Body mass index [BMI] 31.0-31.9, adult; Z79.82 Long term (current) use of aspirin
CPT/HCPCS: 36415; 80048; 80053; 85025; 86850; 86900; 86901; A9270; J0131; J0690; J1650; J2270; J3010; J3490; J7120

== ENCOUNTER 2018-12-01 10:49 | Outpatient (CLI) | payer MEDICARE, OTHER ==
[2018-12-01 11:09] LABS: BASOPHILS % (AUTO) 0.5 %; EOSINOPHILS # (AUTO) 0.2 10^3/uL (0.0-0.7); HGB - HEMOGLOBIN 8.5 g/dL (12.0-16.0); LYMPHOCYTES # (AUTO) 1.4 10^3/uL (1.5-3.5); LYMPHOCYTES % (AUTO) 24.3 %; MEAN CORPUSCULAR HEMOGLOBIN 22.7 pg (27.0-31.0); MEAN CORPUSCULAR HGB CONC 31.3 g/dL (32.0-36.0); MEAN CORPUSCULAR VOLUME 72.6 fL (81.0-99.0); MEAN PLATELET VOLUME 9.4 fL (7.9-10.8); MONOCYTES # (AUTO) 0.3 10^3/uL (0.0-1.0); MONOCYTES % (AUTO) 5.5 %; NEUTROPHILS # (AUTO) 3.8 10^3/uL (1.5-6.6); NEUTROPHILS % (AUTO) 65.7 %; PLT - PLATELET COUNT 127 10^3/uL (130-450); RED BLOOD COUNT 3.73 10^6/uL (4.20-5.40); RED CELL DISTRIBUTION WIDTH 16.3 % (12.0-15.0); WHITE BLOOD COUNT 5.7 x10^3/uL (4.8-10.8)
== END 2018-12-01 10:50 | disposition home or self-care (01) ==
LOC: LAB 10:49
PROVIDERS: ATTEND Surgery
DX: R19.5 Other fecal abnormalities (principal); I95.1 Orthostatic hypotension
CPT/HCPCS: 36415; 85025

== ENCOUNTER 2018-12-30 11:13 | Outpatient (CLI) | payer MEDICARE, OTHER ==
[2018-12-30 11:28] LABS: BASOPHILS % (AUTO) 0.7 %; EOSINOPHILS # (AUTO) 0.1 10^3/uL (0.0-0.7); EOSINOPHILS % (AUTO) 2.7 %; LYMPHOCYTES # (AUTO) 1.4 10^3/uL (1.5-3.5); LYMPHOCYTES % (AUTO) 30.2 %; MEAN CORPUSCULAR HEMOGLOBIN 23.2 pg (27.0-31.0); MEAN CORPUSCULAR HGB CONC 30.7 g/dL (32.0-36.0); MEAN CORPUSCULAR VOLUME 75.4 fL (81.0-99.0); MEAN PLATELET VOLUME 9.8 fL (7.9-10.8); MONOCYTES # (AUTO) 0.4 10^3/uL (0.0-1.0); MONOCYTES % (AUTO) 8.2 %; NEUTROPHILS # (AUTO) 2.7 10^3/uL (1.5-6.6); NEUTROPHILS % (AUTO) 58.2 %; PLT - PLATELET COUNT 123 10^3/uL (130-450); RED BLOOD COUNT 4.31 10^6/uL (4.20-5.40); RED CELL DISTRIBUTION WIDTH 19.3 % (12.0-15.0); WHITE BLOOD COUNT 4.6 x10^3/uL (4.8-10.8)
== END 2018-12-30 11:14 | disposition home or self-care (01) ==
LOC: LAB 11:13
PROVIDERS: ATTEND Internal Medicine Gastroenterology
DX: C18.0 Malignant neoplasm of cecum (principal); D50.9 Iron deficiency anemia, unspecified
CPT/HCPCS: 36415; 85025

== ENCOUNTER 2019-02-02 07:20 | Outpatient (CLI) | payer MEDICARE, OTHER ==
[2019-02-02 07:52] LABS: BASOPHILS % (AUTO) 0.8 %; EOSINOPHILS # (AUTO) 0.2 10^3/uL (0.0-0.7); HGB - HEMOGLOBIN 10.9 g/dL (12.0-16.0); LYMPHOCYTES # (AUTO) 1.5 10^3/uL (1.5-3.5); LYMPHOCYTES % (AUTO) 40.2 %; MEAN CORPUSCULAR HEMOGLOBIN 23.4 pg (27.0-31.0); MEAN CORPUSCULAR HGB CONC 30.7 g/dL (32.0-36.0); MEAN CORPUSCULAR VOLUME 76.4 fL (81.0-99.0); MEAN PLATELET VOLUME 10.3 fL (7.9-10.8); MONOCYTES # (AUTO) 0.3 10^3/uL (0.0-1.0); MONOCYTES % (AUTO) 7.9 %; NEUTROPHILS # (AUTO) 1.7 10^3/uL (1.5-6.6); NEUTROPHILS % (AUTO) 46.1 %; PLT - PLATELET COUNT 115 10^3/uL (130-450); RED BLOOD COUNT 4.65 10^6/uL (4.20-5.40); RED CELL DISTRIBUTION WIDTH 18.2 % (12.0-15.0); WHITE BLOOD COUNT 3.7 x10^3/uL (4.8-10.8)
[2019-02-02 08:09] LABS: ALBUMIN/GLOBULIN RATIO 1.3 (1.0-2.2); ALKALINE PHOSPHATASE 48 IU/L (42-121); ALT ALANINE AMINOTRANSFERASE 29 IU/L (10-60); AST ASPARTATE AMINOTRANSFERASE 34 IU/L (10-42); BILIRUBIN,TOTAL 0.9 mg/dL (0.2-1.0); BUN - BLOOD UREA NITROGEN 17 mg/dL (6-20); CALCIUM 9.3 mg/dL (8.5-10.3); CARBON DIOXIDE - CO2 24 mmol/L (21-32); CHLORIDE 107 mmol/L (101-111); CHOL/HDL RATIO 2.5 (<4.4); CHOLESTEROL 106 mg/dL; CREATININE 0.7 mg/dL (0.4-1.0); GFR - MDRD 83 (>89); GLUCOSE 95 mg/dL (70-100); HDL CHOLESTEROL 42 mg/dL; LDL CHOLESTEROL,CALCULATED 36 mg/dL; LDL/HDL RATIO 0.9 (<4.4); SODIUM 141 mmol/L (135-145); VLDL CHOLESTEROL 28 mg/dL
[2019-02-02 08:41] LABS: PLATELET ESTIMATE, MANUAL DECREASED (<130,000) (NORMAL); PLATELET MORPHOLOGY 1+ LARGE PLATELETS (NORMAL)
== END 2019-02-02 07:21 | disposition home or self-care (01) ==
LOC: LAB 07:20
PROVIDERS: ATTEND Nurse Practitioner
DX: E87.6 Hypokalemia (principal); I10 Essential (primary) hypertension; E78.5 Hyperlipidemia, unspecified; D50.9 Iron deficiency anemia, unspecified; Z79.899 Other long term (current) drug therapy
CPT/HCPCS: 36415; 80053; 80061; 83721; 85025

== ENCOUNTER 2019-03-25 06:12 | Emergency (ER) | payer MEDICARE, OTHER ==
[2019-03-25 06:19] VITALS: BP 154/77
--- NOTE | 2019-03-25 06:39 | ED Physician Documentation ---
PD HPI HEENT - Stated complaint Stated Complaint: SORE THROAT - Chief complaint Chief Complaint: Heent - History obtained from History obtained from: Patient - History of Present Illness Timing - onset: How many days ago (2-3) Timing - duration: Days Timing - details: Gradual onset, Waxing and waning Location: Throat Improves: Nothing Worsens: Swalllowing Associated symptoms: Cough. No: Fever Similar symptoms before: Has not had sx before Recently seen: Not recently seen - Additional information Additional information: returned from [place] 3 days ago, c/o 2-3 days of sore throat, sweats/chills, productive cough (green sputum) Review of Systems Constitutional: reports: Chills, Fatigue Ears: denies: Ear pain Throat: reports: Sore throat Respiratory: reports: Cough. denies: Dyspnea GI: denies: Abdominal Pain PD PAST MEDICAL HISTORY - Past Medical History Past Medical History: Yes Cardiovascular: Hypertension, High cholesterol, Murmur Respiratory: None, Shortness of breath Neuro: Peripheral neuropathy, Motion sickness Endocrine/Autoimmune: None GI: GERD, Other : Incontinence, Kidney stones HEENT: Chronic vision loss Psych: Depression, Anxiety, Panic attacks Musculoskeletal: Osteoarthritis, Gout Derm: None - Past Surgical History Past Surgical History: Yes General: Cholecystectomy, Appendectomy, Colonoscopy /[employer]: Hysterectomy HEENT: Tonsil/Adenoidectomy - Present Medications Home Medications: Ambulatory Orders Medication Instructions Recorded Confirmed Atorvastatin [Lipitor] 20 mg PO DAILY 09/08/16 03/25/19 buPROPion [Wellbutrin Xl] 150 mg PO DAILY PRN 09/08/16 03/25/19 Metoprolol Succinate 100 mg PO DAILY 11/15/18 03/25/19 Ferrous Gluconate [Iron] 240 mg PO DAILY #30 tablet 11/29/18 03/25/19 Azithromycin [Zithromax] 250 mg PO DAILY #4 tablet 03/25/19 - Allergies Allergies/Adverse Reactions: Allergies Allergy/AdvReac Type Severity Reaction Status Date / Time Penicillins Allergy Anaphylaxis Verified 03/25/19 06:19 Sulfa (Sulfonamide Allergy Anaphylaxis Verified 03/25/19 06:19 Antibiotics) - Social History Does the pt smoke?: No Smoking Status: Never smoker Does the pt drink ETOH?: Yes Does the pt have substance abuse?: No - POLST Patient has POLST: No PD ED PE NORMAL - Vitals Vital signs reviewed: Yes - General General: Alert and oriented X 3, No acute distress, Well developed/nourished - HEENT HEENT: Moist mucous membranes, Other (posterior oropharyngeal erythema without exudate or obvious swelling) - Neck Neck: Supple, no meningeal sign - Cardiac Cardiac: RRR, No murmur - Respiratory Respiratory: No respiratory distress, Clear bilaterally Results - Vitals Vitals: Vital Signs - 24 hr 03/25/19 06:17 Temperature 36.6 C Heart Rate 90 Respiratory 18 Rate Blood Pressure 154/77 H O2 Saturation 96 Oxygen O2 Source Room air - Labs Labs: Laboratory Tests 03/25/19 06:24 Group A Strep Rapid Negative PD MEDICAL DECISION MAKING - ED course Complexity details: reviewed results, considered differential, d/w patient, d/w family Departure - Departure Disposition: 01 Home, Self Care Clinical Impression: Pharyngitis Condition: Good Health Concerns: sore throat Plan of Treatment: antibiotic Care Goals: symptom control Assessment: see diagnosis Instructions: ED Strep Pharyngitis Poss Follow-Up: Sarath Senior MD [Primary Care Provider] - Prescriptions: Azithromycin [Zithromax] 250 mg PO DAILY #4 tablet Discharge Date/Time: 03/25/19 07:43
[2019-03-25] MEDS ORDERED: DEXAMETHASONE 10 MG/ML VIAL PO STA (07:28)
[2019-03-25] MEDS ORDERED: AZITHROMYCIN 250 MG TABLET PO STA (07:28)
[2019-03-25] MEDS ORDERED: CHERRY SYRUP 10 ML UDC PO ONE (07:28)
== END 2019-03-25 07:43 | disposition home or self-care (01) ==
LOC: ED 06:12
DX: J02.9 Acute pharyngitis, unspecified (principal); I10 Essential (primary) hypertension
CPT/HCPCS: 87070; 87430; 99283; 99284; A9270

== ENCOUNTER 2019-05-04 06:59 | Outpatient (CLI) | payer MEDICARE, OTHER ==
[2019-05-04 07:23] LABS: ABSOLUTE RETICS # AUTO 0.081 10^6/uL (0.020-0.110); BASOPHILS % (AUTO) 0.7 %; EOSINOPHILS # (AUTO) 0.2 10^3/uL (0.0-0.7); EOSINOPHILS % (AUTO) 5.4 %; HGB - HEMOGLOBIN 13.8 g/dL (12.0-16.0); LYMPHOCYTES # (AUTO) 1.6 10^3/uL (1.5-3.5); MEAN CORPUSCULAR HEMOGLOBIN 29.6 pg (27.0-31.0); MEAN CORPUSCULAR HGB CONC 32.9 g/dL (32.0-36.0); MEAN CORPUSCULAR VOLUME 89.7 fL (81.0-99.0); MEAN PLATELET VOLUME 12.3 fL (7.9-10.8); MONOCYTES # (AUTO) 0.3 10^3/uL (0.0-1.0); NEUTROPHILS # (AUTO) 2.3 10^3/uL (1.5-6.6); NEUTROPHILS % (AUTO) 51.2 %; PLT - PLATELET COUNT 111 10^3/uL (130-450); RED BLOOD COUNT 4.67 10^6/uL (4.20-5.40); RED CELL DISTRIBUTION WIDTH 16.6 % (12.0-15.0); WHITE BLOOD COUNT 4.5 x10^3/uL (4.8-10.8)
[2019-05-04 08:05] LABS: FERRITIN 23.6 ng/mL (11.0-306.8)
[2019-05-04 08:06] LABS: CREATININE 0.8 mg/dL (0.4-1.0)
[2019-05-04 08:09] LABS: FOLATE 22.87 ng/mL (5.90 - >24.8)
== END 2019-05-04 07:00 | disposition home or self-care (01) ==
LOC: LAB 06:59
PROVIDERS: ATTEND Family Medicine
DX: D50.9 Iron deficiency anemia, unspecified (principal); E87.6 Hypokalemia; I10 Essential (primary) hypertension; R53.83 Other fatigue
CPT/HCPCS: 36415; 80048; 82607; 82728; 82746; 83540; 84466; 85025; 85044

== ENCOUNTER 2019-09-14 06:58 | Outpatient (CLI) | payer MEDICARE, OTHER ==
[2019-09-14 07:16] LABS: BASOPHILS % (AUTO) 0.8 %; EOSINOPHILS # (AUTO) 0.2 10^3/uL (0.0-0.7); EOSINOPHILS % (AUTO) 4.6 %; HGB - HEMOGLOBIN 15.1 g/dL (12.0-16.0); LYMPHOCYTES % (AUTO) 41.7 %; MEAN CORPUSCULAR HEMOGLOBIN 31.9 pg (27.0-31.0); MEAN CORPUSCULAR HGB CONC 34.3 g/dL (32.0-36.0); MEAN CORPUSCULAR VOLUME 92.8 fL (81.0-99.0); MEAN PLATELET VOLUME 11.7 fL (7.9-10.8); MONOCYTES # (AUTO) 0.3 10^3/uL (0.0-1.0); MONOCYTES % (AUTO) 6.8 %; NEUTROPHILS # (AUTO) 2.2 10^3/uL (1.5-6.6); NEUTROPHILS % (AUTO) 45.5 %; PLT - PLATELET COUNT 124 10^3/uL (130-450); RED BLOOD COUNT 4.74 10^6/uL (4.20-5.40); WHITE BLOOD COUNT 4.8 x10^3/uL (4.8-10.8)
[2019-09-14 07:42] LABS: ALBUMIN 4.3 g/dL (3.2-5.5); ALBUMIN/GLOBULIN RATIO 1.6 (1.0-2.2); BILIRUBIN,TOTAL 1.4 mg/dL (0.2-1.0); CALCIUM 8.8 mg/dL (8.5-10.3); CREATININE 0.8 mg/dL (0.4-1.0)
== END 2019-09-14 06:59 | disposition home or self-care (01) ==
LOC: LAB 06:58
PROVIDERS: ATTEND Internal Medicine Gastroenterology
DX: C18.0 Malignant neoplasm of cecum (principal); R19.7 Diarrhea, unspecified
CPT/HCPCS: 36415; 80053; 85025

== ENCOUNTER 2019-09-27 07:16 | Outpatient (CLI) | payer MEDICARE, OTHER ==
[2019-09-27 07:42] LABS: ALBUMIN 4.4 g/dL (3.2-5.5); ALBUMIN/GLOBULIN RATIO 1.4 (1.0-2.2); BILIRUBIN,TOTAL 1.1 mg/dL (0.2-1.0); CALCIUM 9.2 mg/dL (8.5-10.3); CREATININE 0.9 mg/dL (0.4-1.0); TOTAL PROTEIN 7.5 g/dL (6.7-8.2)
== END 2019-09-27 07:17 | disposition home or self-care (01) ==
LOC: LAB 07:16
PROVIDERS: ATTEND Nurse Practitioner
DX: E87.6 Hypokalemia (principal)
CPT/HCPCS: 36415; 80053

== ENCOUNTER 2019-10-01 07:45 | Day surgery (SDC) | payer MEDICARE, OTHER ==
[2019-10-01] MEDS ORDERED: MIDAZOLAM 2 MG/2 ML VIAL IVP ONE (07:46)
[2019-10-01] MEDS ORDERED: fentaNYL 250 MCG/5 ML VIAL IVP ONE (07:46)
[2019-10-01] MEDS ORDERED: LACTATED RINGERS 1,000 ML IV ONE (08:14)
[2019-10-01 10:55] VITALS: BP 122/78
== END 2019-10-01 07:46 | disposition home or self-care (01) ==
LOC: SDS 07:45
PROVIDERS: ATTEND Internal Medicine Gastroenterology
PROC: 0DBL8ZX Excision of Transverse Colon, Via Natural or Artificial Opening Endoscopic, Diagnostic (ICD-10-PCS; 2019-10-01)
PROC: 0DBN8ZZ Excision of Sigmoid Colon, Via Natural or Artificial Opening Endoscopic (ICD-10-PCS; 2019-10-01)
PROC: 0DBG8ZX Excision of Left Large Intestine, Via Natural or Artificial Opening Endoscopic, Diagnostic (ICD-10-PCS; principal; 2019-10-01 09:00)
DX: K52.9 Noninfective gastroenteritis and colitis, unspecified (principal); K57.30 Diverticulosis of large intestine without perforation or abscess without bleeding; K63.89 Other specified diseases of intestine; E66.9 Obesity, unspecified; I10 Essential (primary) hypertension; Z90.49 Acquired absence of other specified parts of digestive tract; Z85.038 Personal history of other malignant neoplasm of large intestine; Z79.899 Other long term (current) drug therapy; Z68.32 Body mass index [BMI] 32.0-32.9, adult; Z98.0 Intestinal bypass and anastomosis status
CPT/HCPCS: 45380; J3010; J7120